=== PATIENT | male | born 1965 | race Caucasian/White ===

== ENCOUNTER 2016-04-17 11:18 | Emergency (ER) | payer OTHER ==
[~2016-04-17] VITALS: Ht 190.5 cm; Wt 116.4 kg
[~2016-04-17 11:18] MED LIST: LORA2TAB PO; LOVA40TA PO; PANT40TA2 PO; TAMS0.4C98 PO; VENL-57 PO; ZLP10T PO
[2016-04-17 11:32] VITALS: BP 139/102; PULSE 90; RESP 20; O2SAT 95
--- NOTE | 2016-04-17 11:44 | ED.REPORT ---
HPI-Chest Pain 40 and Over Date of Service Apr 17, 2016 ED Provider: Christopher Parsons MD Patient is a 50-year-old male who presents to the ER reporting left chest pain onset 6 hours ago. During his drive to work this morning, patient states he felt , "extremely uneasy." patient reports he felt like his blood pressure was elevated. He walked up four flights of stairs, had to sit down due to lightheadedness, generalized weakness, and SOB. Earlier today he felt some palpitations in his upper left chest. Patient reports headache on his left side since last night. Nursing Notes Stated Complaint: LEFT ARM NUMBNESS,TROUBLE BREATHING Chief Complaint: Chest Pain Nursing Notes Reviewed: Yes Allergies: Coded Allergies: Penicillins (Verified Allergy, Unknown, Rash,Itching,, 04/17/16) Scheduled Lovastatin (Lovastatin) 40 Mg Tablet 40 MG PO HS Venlafaxine ER (Venlafaxine ER) 75 Mg Tab.er.24 75 MG PO DAILY Scheduled PRN Lorazepam (Lorazepam) 2 Mg Tablet 2 MG PO PRN PRN PRN for flying Zolpidem (Ambien) 10 Mg Tab 10 MG PO HS PRN PRN For Insomnia General Time Seen by MD: 11:42 Chief Complaint Chest pain Hx Obtained From: Patient Sudden in Onset?: Yes Onset Occurred: 5 - 8 hours ago Symptom Duration: Since onset Location: : Chest left Radiation: : Does not radiate Severity: Current: Mild Recent Healthcare: No recent doctor visit, No recent hospitalization Similar Sx Previous: No Past Medical History Past Medical History Lung cancer Reports: Hyperlipidemia Past Surgical History denies Family History His brother has a cardiac stent. Smoking History Former Smoker Social History Other Social History: Smokeless tobacco, Local resident Ambulatory Status Independent Review of Systems Constitutional: Reports: Weakness - generalized Respiratory: Reports: Shortness of breath Cardiovascular: Reports: Chest pain Neurologic: Reports: Headache Complete sys rev & neg: except as marked. Physical Exam Initial Vital Signs Vital Signs (First) Date Time Temp Pulse Resp B/P Pulse Ox O2 Delivery O2 Flow Rate FiO2 04/17/16 11:32 36.7 90 20 139/102 95 Room Air Initial VS: Reviewed Head / Eyes: Atraumatic, Normocephalic, PERRL ENT: Mucous membranes moist, Conjunctiva normal, No scleral icterus Neck: Supple, Non-tender, Full range of motion Back: No CVA tenderness Skin: Warm, Dry, No cyanosis Neurologic: Alert, Oriented, Nonfocal Psychiatric: Mood/affect normal, Behavior normal, Normal thought content General/Constitutional: Awake, Alert, No acute distress, Well appearing, Cooperative, Not toxic appearing Respiratory / Chest: Atraumatic, Breath sounds NL, Breath sounds = bilat, No respiratory distress, No rales, No rhonchi, No wheezing Cardiovascular: Heart rate NL, Regular rhythm, Heart sounds NL, No gallop, No murmurs, No rubs Abdomen: Atraumatic, Soft, Non-tender, No guarding, No rebound, BS normoactive Lower Extremity / Pelvis / MS: No edema Interpretation & Diagnostics Lab Results Interpretation Result Diagram: 04/17/16 1156 04/17/16 1156 Test 04/17/16 11:56 04/17/16 11:58 White Blood Count 9.2th/mm3 (3.8-10.1) Red Blood Count 5.41mil/mm3 (4.40-5.80) Hemoglobin 15.8g/dL (13.8-17.2) Hematocrit 46.9% (41.0-50.0) Mean Corpuscular Volume 86.7fL (81-100) Mean Corpuscular Hemoglobin 29.2pg (27.0-35.0) Mean Corpuscular Hemoglobin Concent 33.7% (32.0-37.0) Red Cell Distribution Width 13.2% (12.3-15.4) Platelet Count 335bil/L (150-400) Neutrophils (%) (Auto) 63.6% (40-74) Lymphocytes (%) (Auto) 27.2% (14-46) Monocytes (%) (Auto) 7.4% (4-12) Eosinophils (%) (Auto) 1.1% (0-5) Basophils (%) (Auto) 0.2% (0-3) Sodium Level 138mEq/L (134-144) Potassium Level 4.3mEq/L (3.5-5.2) Chloride Level 100mEq/L (97-108) Carbon Dioxide Level 23mmol/L (18-29) Blood Urea Nitrogen 17mg/dL (6-24) Creatinine 0.85mg/dL (0.76-1.27) Estimat Glomerular Filtration Rate 101mL/min (>59) Glucose Level 88mg/dL (60-99) Calcium Level 9.9mg/dL (8.5-10.1) Magnesium Level 2.2mg/dL (1.6-2.6) Total Bilirubin 0.3mg/dL (0.0-1.2) Aspartate Amino Transf (AST/SGOT) 28U/L (0-50) Alanine Aminotransferase (ALT/SGPT) 33U/L (0-44) Alkaline Phosphatase 75U/L (25-150) Troponin T < 0.010ug/L (0.0-0.011) Total Protein 7.9g/dL (6.4-8.4) Albumin 4.9g/dL (3.4-5.0) Hold [place] Top Tube Received (Received) ECG Interpretation Time: 12:34 Interpreted by: ED physician Normal ECG Interpretation: Normal sinus rhythm (65) Re-Eval/Medical Decision Med Decision/Clinical Course 50-year-old male history of anxiety presenting with left arm tingling earlier today at 0600. He also felt dyspneic at that time while walking upstairs. Denied any chest pain. EKG normal sinus rhythm. No signs ischemia. Troponins negative 7 hours after onset.. Vital signs stable. Chest x-ray clear. Possibly related to anxiety. No evidence of acute cardiac ischemia. No indications for hospitalization at this time. Recommend he follow-up with his primary doctor later this afternoon as scheduled. Time of Eval: 13:06 Patient Status: Mild relief Re-Evaluation/Progress Note: Pt rechecked. Informed pt of diagnosis and plan for treatment. Pt understands and agrees with plan. F/U and RTER warnings given. All questions addressed. Counseled Regarding: Diagnosis, Lab results, Need for follow-up, When/why to return to ED Discharge & Departure Primary Impression: Non-cardiac chest pain Additional Impression: Left arm pain Disposition: Home Discharge Condition All VS Reviewed: Yes Condition: Stable Additional Instructions: Thank you for coming to the Emergency Room. After review of your labs, you have no evidence of heart attack. Take ibuprofen as needed. If you experience any new or increase of symptoms including chest pain, radiating pain, shortness of breath, and light headedness please or other new or worsening symptoms, return to the Emergency Room. We hope you feel better soon! Referrals: Chitra Dawson (PCP) Scribe Attestation Portion of this note were transcribed by Gaston Shahid. I, Dr. Parsons, personally performed the history, physical exam, and medical decision-making: I reviewed and confirmed the accuracy for the information in the transcribed note. Signed by: elaine Costa, 04/17/16 [id number] copies to: Chitra Dawson Ben M MD Apr 17, 2016 11:44 GASTON SHAHID Apr 17, 2016 12:08
[2016-04-17] MEDS ORDERED: VENL75TA87 PO (11:58)
[2016-04-17 11:59] LABS: BASOPHILS % (AUTO) 0.2 % (0-3); EOSINOPHILS % (AUTO) 1.1 % (0-5); MONOCYTES % (AUTO) 7.4 % (4-12); Mean Corpuscular Hemoglobin 29.2 pg (27.0-35.0); Mean Corpuscular Volume 86.7 fL (81-100); NEUTROPHILS % (AUTO) 63.6 % (40-74); Platelet Count 335 bil/L (150-400)
[2016-04-17 12:00] VITALS: BP 150/117; PULSE 82; RESP 20; O2SAT 96
[2016-04-17 12:33] LABS: Magnesium 2.2 mg/dL (1.6-2.6)
[2016-04-17 12:35] LABS: TROPONIN T < 0.010 ug/L (0.0-0.011)
--- NOTE | 2016-04-17 12:50 | DRSVH ---
PROCEDURE: X-RAY CHEST ONE VIEW, PORTABLE ([id number]) INDICATIONS: LEFT ARM PAIN, SHORTNESS OF BREATH TECHNIQUE: One view of the chest was acquired. COMPARISON: None. FINDINGS: Surgical changes and devices: None. Lungs and pleura: No pleural effusions or pneumothorax. Lungs are clear. Mediastinum: Mediastinal contours appear normal. Heart size is normal. Bones and chest wall: No suspicious bony lesions. Overlying soft tissues appear unremarkable. IMPRESSION: No acute cardiopulmonary disease. Dictated by: Chase Tran [facility] Interpreted: Sveta Peralta MD on 04/17/2016 at 12:49 Transcribed by: FISH on 04/17/2016 at 12:49 Approved by: Sveta Peralta MD, PhD on 04/17/2016 at 17:25
[2016-04-17 13:06] VITALS: BP 115/77; PULSE 62; RESP 11; O2SAT 98
[2016-04-17 13:21] VITALS: BP 115/77; PULSE 62; RESP 11; O2SAT 98
== END 2016-04-17 13:22 | disposition home or self-care (01) ==
LOC: SED 11:18
DX: R07.89 Other chest pain (principal); M79.622 Pain in left upper arm; Z85.118 Personal history of other malignant neoplasm of bronchus and lung; Z87.891 Personal history of nicotine dependence; Z88.0 Allergy status to penicillin

== ENCOUNTER → 2016-11-03 | Day surgery (SDC) | payer OTHER ==
[~2016-11-03] VITALS: Ht 190.5 cm; Wt 121.0 kg
[~2016-11-03] MED LIST changes: +0.9% Sodium Chloride 1,000 ML IV PRN; -LOVA40TA PO; -PANT40TA2 PO; +Sodium Chloride LOK Flush 10 mL Syringe IV PRN; -TAMS0.4C98 PO; -VENL-57 PO; +VENL75TA87 PO; +fentaNYL-PF 50 mCg/mL 2 mL Inj IVPUSH PRN
[2016-11-03 13:31] VITALS: BP 122/81; PULSE 73; RESP 14; O2SAT 99
--- NOTE | 2016-11-03 14:31 | PCM.ENDCOL ---
Colonoscopy Date of Service: Nov 03, 2016 Physician Vincent London MD Pre Procedure Diagnosis: Screening Post Procedure Dx & Findings: Polyps hemorrhoids colitis Procedure Colonoscopy PROCEDURE IN DETAIL: Prep adequate Withdrawal time 11 minutes After unremarkable rectal examination the Olympus video colonoscope was inserted patient's anal canal and was advanced to cecum. Landmarks were identified including the ileocecal valve and appendiceal orifice. Scope was withdrawn systematically. Visualized colonic mucosa showed healthy shiny mucosa with normal healthy-appearing vasculature. In the transverse colon there was a 1 polyp which was removed completely using hot snare. In the sigmoid colon, there was patchy redness consistent with inflammation. Biopsies obtained. In the rectum retroflexion was done which showed hemorrhoids. Anal canal was inspected carefully on the way out and hemorrhoids noted. Impression Polyp 1 status post complete removal. 1 cm in size. Patchy redness in the sigmoid colon. Status post biopsy; no bowel symptom reported. Hemorrhoids Recommendation Repeat colonoscopy 3 years Presedation Assessment Risks and Benefits Informed consent was obtained from the patient after all risks and benefits including but not limited to drug reaction, infection, pain, bleeding, perforation, as well as alternatives were discussed. Patient monitoring Continuous pulse oximetry, cardiac monitoring, blood pressure monitoring, IV access, and oxygen at 2L per nasal cannula. Periprocedural Fentanyl: Fentanyl 125mcg Incrementally Midazolam: Midazolam 6mg Incrementally Complications There were no periprocedural complications identified. Post Procedure Plan Post Procedure Recommendations 1. Restrict activities today. 2. Resume normal activities in the morning. 3. Resume medications. 4. Patient informed of normal post procedure side effects as bloating, drowsiness, blood streaking in the stool. 5. average risk CRCS. If colon polyps come back as: -Hyperplastic- can repeat colonoscopy in 10 years -Tubular adenoma- repeat colonoscopy in 5 years -Tubulovillous/villous adenoma- repeat colonoscopy in 3 years -If any dysplasia- return to clinic as soon as possible 6. Please don't hesitate to call me with any questions. Vincent London MD Nov 03, 2016 14:31
[2016-11-03 14:32] VITALS: BP 129/91; PULSE 81; O2SAT 97
[2016-11-03 14:42] VITALS: BP 130/80; PULSE 77; O2SAT 94
--- NOTE | 2016-11-05 12:33 | PATH ---
SURGICAL PATHOLOGY Attending Physician:Vincent London M.D. CASE STATUS: Signed Out PATIENT NAME: SOHAN RUIZ PID: [id number] : 1965 DATE COLLECTED:11/03/2016 00:00 SPECIMEN: 1: Colon, Polyp 2: Colon, Biopsy CLINICAL HISTORY: 1). TRANSVERSE POLYP X1 2). SIGMOID INFLAMMATION BIOPSY FINAL DIAGNOSIS: 1. Transverse Colon Polyp, Biopsy: Tubular adenoma. 2. Sigmoid Inflammation, Biopsy: Colonic mucosa with acute lamina propria hemorrhage, consistent with procedure. Negative for active inflammation, granulomata, dysplasia or malignancy. ICD10: D12.2 GROSS DESCRIPTION: The specimen is received in two formalin filled containers labeled with the patient's name. 1). The specimen is labeled "trans" and consists of a 0.5 x 0.5 x 0.5 CM portion of tissue which is entirely submitted in cassette 1A. 2). The specimen is labeled "sig" and consists of 2 tiny portions of tissue which aggregate to 0.1 x 0.1 x 0.1 CM. The specimen is entirely submitted in cassette 2A. 11/04/2016HI ICD-9 CODES: CPT CODES: 1: 98473 2: 49722 Electronically Signed Out Adithya Echevarria MD, Ph.D. [facility] Pathology [facility] [address], [place] [address] Technical component performed at [facility], [facility] [address], [place], [address]
== END | disposition home or self-care (01) ==
LOC: END 00:15
PROVIDERS: ATTEND Internal Medicine
DX: Z12.11 Encounter for screening for malignant neoplasm of colon (principal); D12.3 Benign neoplasm of transverse colon; K52.9 Noninfective gastroenteritis and colitis, unspecified; K64.8 Other hemorrhoids; F32.9 Major depressive disorder, single episode, unspecified; E55.9 Vitamin D deficiency, unspecified; E78.5 Hyperlipidemia, unspecified; F41.9 Anxiety disorder, unspecified; N40.1 Benign prostatic hyperplasia with lower urinary tract symptoms; R35.0 Frequency of micturition; Z87.891 Personal history of nicotine dependence
CPT/HCPCS: 45385; 99153; G0500; J2250; J3010; J7030